=== PATIENT | male | born 1985 | race Caucasian/White ===

== ENCOUNTER 2017-10-17 08:34 | Emergency (ER) | payer MEDICAID, OTHER ==
[~2017-10-17] VITALS: Ht 182.9 cm; Wt 81.6 kg
[2017-10-17 08:39] VITALS: BP 140/98
[2017-10-17] MEDS ORDERED: LIDOCAINE 1% (LOCAL ANESTH.) PF 5ml SDV IJ ONE (09:30)
[2017-10-17] MEDS ORDERED: LIDOCAINE 1% (LOCAL ANESTH.) PF 5ml SDV ONE (09:31)
== END 2017-10-17 10:02 | disposition home or self-care (01) ==
LOC: ER 08:36
DX: S61.511A Laceration without foreign body of right wrist, initial encounter (principal); J45.909 Unspecified asthma, uncomplicated; Z91.018 Allergy to other foods; W22.8XXA Striking against or struck by other objects, initial encounter; Y93.89 Activity, other specified; Y99.8 Other external cause status; Y92.89 Other specified places as the place of occurrence of the external cause
CPT/HCPCS: 12002; 73100; 73120

== ENCOUNTER 2018-07-16 23:43 | Emergency (ER) | payer MEDICAID ==
[~2018-07-16] VITALS: Ht 182.9 cm; Wt 79.4 kg
[2018-07-17 01:38] VITALS: BP 114/84
[2018-07-17] MEDS ORDERED: TETANUS-DIPTH-ACEL PERTUSSIS 0.5ML SYRG IM ONE (02:13)
[2018-07-17] MEDS ORDERED: cefTRIAXone SOD 1,000 MG VL IM ONE (02:30)
== END 2018-07-17 03:03 | disposition home or self-care (01) ==
LOC: ER 23:45
DX: S60.221A Contusion of right hand, initial encounter (principal); J45.909 Unspecified asthma, uncomplicated; Z91.018 Allergy to other foods; W22.8XXA Striking against or struck by other objects, initial encounter; Y93.89 Activity, other specified; Y99.8 Other external cause status; Y92.89 Other specified places as the place of occurrence of the external cause
CPT/HCPCS: 73130; 90471; 90715

== ENCOUNTER 2018-10-12 00:05 | Emergency (ER) | payer MEDICAID ==
[~2018-10-12] VITALS: Ht 182.9 cm; Wt 83.9 kg
[2018-10-12 01:49] LABS: Basophils # (auto) 0.1 uL; Basophils % (auto) 0.6 % (0.0-2.0); Eosinophils # (auto) 0.1 uL; Eosinophils % (auto) 0.5 % (0.0-7.0); Hematocrit 49.8 % (41.0-53.0); Hemoglobin 17.3 g/dL (13.5-17.5); Lymphocytes # (auto) 2.2 uL; Lymphocytes % (auto) 19.6 % (10.0-50.0); Mean Corpuscular Hemoglobin 33.8 pg (28.0-32.0); Mean Corpuscular Hgb Conc. 34.7 g/dL (32.0-36.0); Mean Corpuscular Volume 97.4 fL (80.0-100.0); Monocytes # (auto) 0.6 uL; Monocytes % (auto) 5.5 % (0.0-12.0); Neutrophils # (auto) 8.3 uL; Neutrophils % (auto) 73.8 % (37.0-80.0); Nucleated Red Blood Cells % 0.1 %; Platelet Count (auto) 207 10^3/uL (140-450); Red Blood Cells 5.11 10^6/uL (4.5-5.90); Red Cell Distribution Width 13.7 % (11.8-14.3); White Blood Cell 11.2 10^3/uL (4.4-10.8)
[2018-10-12 01:59] LABS: Potassium 3.8 mmol/L (3.5-5.1)
[2018-10-12 02:01] LABS: Albumin 4.3 g/dL (3.4-5.0); Calcium 8.7 mg/dL (8.5-10.1)
[2018-10-12 02:04] LABS: BUN/Creatinine Ratio 6.8
[2018-10-12 02:07] LABS: Bilirubin, Total 0.4 mg/dL (0.2-1.0); Total Protein 8.5 g/dL (6.4-8.2)
[2018-10-12] MEDS ORDERED: PANTOPRAZOLE 40 MG TAB PO ONE (06:45)
[2018-10-12] MEDS ORDERED: ALBUTEROL SULF 2.5 MG/0.5ML(0.5%) NEB SOLN NEB ONE (06:45)
[2018-10-12] MEDS ORDERED: METOCLOPRAMIDE HCL 5MG/ml INJ 2ml VIAL IV ONE (06:45)
[2018-10-12] MEDS ORDERED: IPRATROPIUM BROM 0.5 MG/2.5ML INH SOL NEB ONE (06:45)
[2018-10-12 07:24] LABS: Magnesium 2.2 mg/dL (1.6-2.6)
[2018-10-12 07:29] LABS: INR 1.04 (0.9-1.15); Partial Thromboplastin Time 28.9 sec (23.78-33.04); Prothrombin Time 11.1 sec (9.27-12.13)
[2018-10-12 09:25] VITALS: BP 138/90
[2018-10-12] MEDS ORDERED: MULTIPLE VITAMIN 10 ML, MAGNESIUM SULF SDV 50% 8 MEQ, THIAMINE INJ 100 MG in SODIUM CHL... IV SCH (12:00)
== END 2018-10-12 11:24 | disposition home or self-care (01) ==
LOC: ER 00:05
DX: K29.21 Alcoholic gastritis with bleeding (principal); F17.210 Nicotine dependence, cigarettes, uncomplicated; F10.10 Alcohol abuse, uncomplicated; J45.909 Unspecified asthma, uncomplicated; Z91.018 Allergy to other foods; Y90.6 Blood alcohol level of 120-199 mg/100 ml
CPT/HCPCS: 36415; 71045; 74176; 80053; 80320; 83690; 83735; 85025; 85610; 85730; 86850; 86900; 86901; 94640; 96374; 99284; J2765; J7611; J7644

== ENCOUNTER 2024-07-22 06:14 | Day surgery (SDC) | payer OTHER ==
[2024-07-20 10:05] LABS: Eosinophils # (auto) 0.1 10 ^3/uL (0-0.8); Lymphocytes # (auto) 1.4 10 ^3/uL (0.4-5.4); Monocytes # (auto) 0.3 10 ^3/uL (0-1.3); Monocytes % (auto) 6.6 % (0.0-12.0); Urine Bacteria MANY /hpf (None Seen); Urine Blood Negative /uL (Negative); Urine Clarity Clear (Clear); Urine Color Light-Yellow (Yellow); Urine Mucus FEW (None Seen); Urine Protein, UAD Negative (Negative); Urine Specific Gravity 1.015 (1.001-1.035); Urine Squamous Epithelial Cell None Seen /hpf (<5); Urine Urobilinogen Normal (Negative); Urine WBC 26 /HPF (0-3); Urine pH 5.5 (5.0-9.0); White Blood Cell 5.1 10^3/uL (4.4-10.8)
[2024-07-20 10:07] LABS: Basophils # (auto) 0.1 10 ^3/uL (0-0.2); Eosinophils % (auto) 1.2 % (0.0-7.0); Hematocrit 43.7 % (41.0-53.0); Hemoglobin 15.5 g/dL (13.5-17.5); Lymphocytes % (auto) 27.4 % (10.0-50.0); Mean Corpuscular Hemoglobin 36.1 pg (28.0-32.0); Mean Corpuscular Hgb Conc. 35.5 g/dL (32.0-36.0); Mean Corpuscular Volume 101.7 fL (80.0-100.0); Neutrophils # (auto) 3.3 10 ^3/uL (1.6-8.6); Neutrophils % (auto) 63.8 % (37.0-80.0); Nucleated Red Blood Cells % 0.1 %; Platelet Count (auto) 185 10^3/uL (140-450)
[2024-07-20 10:23] LABS: INR 1.06 (0.9-1.15); Partial Thromboplastin Time 27.3 SEC (24.5-34.5); Prothrombin Time 11.2 sec (9.3-11.8)
[2024-07-20 10:35] LABS: Alanine Aminotransferase 32 U/L (7-40); Alkaline Phosphatase 88 U/L (46-116)
[2024-07-20 10:36] LABS: Anion Gap 8 (5-15); Aspartate Aminotransferase 35 U/L (13-40); BUN/Creatinine Ratio 15.5 (10.0-20.0); Bilirubin, Total 0.9 mg/dL (0.2-1.0); Blood Urea Nitrogen 13 mg/dL (9-23); Carbon Dioxide 27 mmol/L (20-31); Chloride 102 mmol/L (98-107); Glucose 101 mg/dL (74-106); Sodium 137 mmol/L (136-145); Total Protein 7.2 g/dL (5.7-8.2)
[2024-07-20 10:47] LABS: Albumin 4.8 g/dL (3.2-4.8); Potassium 3.5 mmol/L (3.5-5.1)
[~2024-07-22] VITALS: Ht 182.9 cm; Wt 80.7 kg
[~2024-07-22 06:14] MED LIST: HYDR25TA4 PO; LISI2.5T47 PO
[2024-07-22] MEDS ORDERED: ceFAZolin 2 GM/D5W100ml 100 ML IV ONE (06:39)
[2024-07-22] MEDS ORDERED: SUCCINYLCHOLINE CHLORIDE 20 MG/ML 10ML VIAL IV ONE (06:42)
[2024-07-22] MEDS ORDERED: fentaNYL CITRATE 100 MCG/2 ML VL ONE (06:44)
[2024-07-22] MEDS ORDERED: PROPOFOL 10 MG/ML 20 ML IV ONE (07:02)
[2024-07-22] MEDS ORDERED: ePHEDrine SULFATE 50 MG/ML AMP ONE (07:27)
[2024-07-22] MEDS ORDERED: PHENYLEPHRINE HCL 10 MG/ML VL ONE (07:33)
[2024-07-22] MEDS ORDERED: ONDANSETRON HCL 4 MG/2 ML VIAL ONE (07:35)
[2024-07-22] MEDS: LIDOCAINE W/ EPINEPHRINE 1% 20ML VIAL ONE (07:38)
[2024-07-22] MEDS: BUPIVACAINE 0.25% INJ 50ML VIAL ONE (07:39)
[2024-07-22] MEDS ORDERED: SUGAMMADEX 200mg/2ml Vial (100MG/ML) IV ONE (07:56)
[2024-07-22] MEDS ORDERED: MEPERIDINE HCL (25 MG/ML) 1ML VIAL ONE (08:00)
[2024-07-22 08:03] VITALS: RESP 15; TEMP 97; O2SAT 93
[2024-07-22] MEDS ORDERED: ACE3T PO (08:04)
--- NOTE | 2024-07-22 08:12 | DVHOP ---
DATE OF SURGERY: 07/22/2024 PREOPERATIVE DIAGNOSIS: Umbilical hernia. POSTOPERATIVE DIAGNOSIS: Umbilical hernia. SURGEON: Feliz Gonzalez MD. DRIVER TRAINEE: Nomi Livingston. ANESTHESIA: General endotracheal. ANESTHESIOLOGIST: Dr. Orr. PROCEDURE: Repair of umbilical hernia, segmental omentectomy. DESCRIPTION OF PROCEDURE: Under general anesthesia with the patient's skin prepped and draped and infiltrated with 0.25% Marcaine for postop analgesia, the patient's incision was made in a periumbilical fashion. The incision deepened with electrocautery. Incarcerated omentum was excised partially and the stalks were ligated with nonabsorbable sutures. The stalk was then returned into the peritoneal cavity. The defect was approximated with nonabsorbable sutures. Measured approximately 2 cm in diameter. The patient's subcutaneous tissues were irrigated. Hemostasis was accomplished and approximation with Monocryl sutures, Dermabond glue and Steri-Strips accomplished. The patient remained stable throughout the procedure, left the operating room following an accurate needle and sponge count. His , Sapphire Burton, was thoroughly informed at [phone]. MD CATE Hobson/JAMIE TID: [id number] RECEIPT: [id number]
[2024-07-22] MEDS ORDERED: ACETAMINOPHEN IV 1000 MG/100ML (10MG/ML) IV PRN (08:15)
[2024-07-22] MEDS ORDERED: HYDROmorphone HCL 2 MG/ML VL/or syr IV PRN (08:15)
[2024-07-22] MEDS ORDERED: ONDANSETRON HCL 4 MG/2 ML VIAL IV ONE (08:15)
[2024-07-22] MEDS ORDERED: MEPERIDINE HCL (25 MG/ML) 1ML VIAL IV PRN (08:15)
[2024-07-22 08:35] VITALS: BP 104/62; PULSE 94; RESP 15; O2SAT 98
== END 2024-07-22 08:53 | disposition home or self-care (01) ==
LOC: SUR 06:14
PROVIDERS: ATTEND Surgery
DX: K42.0 Umbilical hernia with obstruction, without gangrene (principal); I10 Essential (primary) hypertension; Z79.899 Other long term (current) drug therapy; Z98.890 Other specified postprocedural states
CPT/HCPCS: 36415; 49592; 80053; 81001; 85025; 85610; 85730; 86850; 86900; 86901; 88304; J0330; J2175; J2371; J2405; J2704; J3010; J3490